=== PATIENT | female | born 1990 | race Caucasian/White ===

== ENCOUNTER → 2025-02-26 | Outpatient (CLI) | payer BC, SELFPAY ==
[2025-02-26 09:15] LABS: C-Reactive Protein < 0.5 mg/dL (0.0-0.9); Magnesium 1.4 mg/dL (1.6-2.6); Uric Acid 6.0 mg/dL (3.1-7.8)
[2025-02-26 09:18] LABS: Sed Rate (ESR) 8 mm/hr (0-20)
[2025-02-26 15:45] LABS: RA Screen Negative (Negative)
[2025-03-08 06:47] LABS: Estradiol, Ultrasensitive* 255 pg/mL; PTT-LA Screen 37 seconds (< OR = 40); dRVVT Screen 33 seconds (< OR = 45)
[2025-03-17 03:03] LABS: Cardiolipin Ab (IgA) <2.0 APL-U/mL; Cardiolipin Ab (IgG) <2.0 GPL-U/mL; Sjogren's antibody (SS-A) <1.0 NEG AI (<1.0 NEGATIVE); Sm Antibody <1.0 NEG AI (<1.0 NEGATIVE)
[2025-03-17 06:28] LABS: ANA Screen, IFA POSITIVE (NEGATIVE); ANA Titer 1:80 titer; Cortisol,total,LC/MS/MS* 10.5 mcg/dL; DNA (ds) Antibody* <1 IU/mL; Mitochondrial Ab NEGATIVE (NEGATIVE); Sjogren's Antibody (SS-B) <1.0 NEG AI (<1.0 NEGATIVE)
[2025-03-17 06:29] LABS: Actin Antibody (IgG)* <20 U; Cardiolipin Ab (IgM) 3.6 MPL-U/mL; Complement Component C3* 160 mg/dL (83-193); Complement Component C4c* 24 mg/dL (15-57); Gastric Parietal Cell Ab* <20.0 U; Myocardial Ab, IF NEGATIVE (NEGATIVE); Progesterone,LC/MS* <0.1 ng/mL; Scl-70 Antibody* <1.0 NEG AI (<1.0 NEGATIVE); Sm/RNP Antibody <1.0 NEG AI (<1.0 NEGATIVE); Striated Muscle Ab NEGATIVE (NEGATIVE); Thyroid Peroxidase Antibodies* 2 IU/mL (<9)
== END | disposition home or self-care (01) ==
PROVIDERS: PCP Nurse Practitioner Family; Referring Provider Nurse Practitioner Family; Visit Provider Nurse Practitioner Family
DX: E66.01 Morbid (severe) obesity due to excess calories (principal); Z68.42 Body mass index [BMI] 45.0-49.9, adult; R76.8 Other specified abnormal immunological findings in serum; M25.50 Pain in unspecified joint; N96 Recurrent pregnancy loss; E83.42 Hypomagnesemia
CPT/HCPCS: 36415; 82533; 82670; 83516; 83735; 84144; 84550; 85613; 85652; 85730; 86015; 86038; 86140; 86147; 86160; 86225; 86235; 86255; 86376; 86430

== ENCOUNTER → 2025-06-10 | Outpatient (CLI) | payer BC, SELFPAY ==
--- NOTE | 2025-06-10 09:00 | XR_ITS ---
Examination: Transvaginal ultrasound of the pelvis, complete Technique: Transvaginal sonographic images pelvis performed using beck scale imaging Exam date and time: June 10, 2025, 0924 hours INDICATIONS: Irregular menses several years. FINDINGS: No satisfactory visualization of the uterus Ovaries obscured by bowel gas IMPRESSION: Extremely limited study Please see the transabdominal pelvic sonography report.
--- NOTE | 2025-06-10 09:00 | XR_ITS ---
Examination: Pelvic ultrasound, transabdominal, complete Technique: Transabdominal ultrasound of the pelvis performed using grayscale imaging Date and time of exam: June 10, 2025, 0906 hours INDICATIONS: Irregular menses years FINDINGS: Uterus 13.1 cm endometrial stripe 0.6 cm No uterine mass or intrauterine gestation Right ovary 3.0 cm arterial flow Left ovary 3.6 cm arterial flow IMPRESSION: Negative study
--- NOTE | 2025-06-10 10:00 | XR_ITS ---
EXAMINATION: Ultrasound soft tissue neck TECHNIQUE: Grayscale sonographic images soft tissue neck Date and time: June 10, 2025, 0918 hours INDICATIONS: Palpable lumps in the posterior neck beginning several years ago. FINDINGS: 11 x 5 x 8 mm lymph node in the left posterior neck at the area of concern IMPRESSION: 11 x 5 x 8 mm nonspecific lymph node in the left posterior neck at the area of concern If palpable neck abnormalities persist, consider CT soft tissue neck post intravenous contrast follow-up
== END | disposition home or self-care (01) ==
PROVIDERS: PCP Family Medicine; Referring Provider Nurse Practitioner Family; Visit Provider Nurse Practitioner Family
DX: N91.1 Secondary amenorrhea (principal); R22.1 Localized swelling, mass and lump, neck
CPT/HCPCS: 76536; 76830; 76856